=== PATIENT | male | born 1950 | race Hispanic/Latino ===

== ENCOUNTER → 2024-02-23 | Outpatient (CLI) | payer OTHER ==
[~2024-02-23] MED LIST: AMLO-343 PO; ASPI-556 PO; LABE200T7 PO
--- NOTE | 2024-02-23 14:40 | HMCIMG ---
US VENOUS DOPPLER BILATERAL HISTORY: Leg pain COMPARISON: None TECHNIQUE: Bilateral lower extremity venous Doppler ultrasound study was performed. FINDINGS: The common femoral, femoral, popliteal, and posterior tibial veins are visualized. Normal flow with augmentation and compressibilities are demonstrated. The greater saphenous veins are also seen and grossly patent. IMPRESSION: 1. No evidence of deep venous thrombosis is seen.
--- NOTE | 2024-02-23 14:41 | HMCIMG ---
US ARTERIAL BILAT LOW EXT DUPL HISTORY: Leg pain COMPARISON: None TECHNIQUE: Bilateral lower extremity arterial Doppler ultrasound study was performed. FINDINGS: Normal triphasic and biphasic arterial waveforms are noted in the common femoral, deep femoral, superficial femoral, popliteal, posterior tibial and dorsalis pedal arteries. On the right, the peak systolic velocity of the common femoral artery is 160 cm/s, the proximal femoral artery is 95 cm/s, the mid femoral artery is 107 cm/s, the distal femoral artery is 74 cm/s, the proximal popliteal artery is 82 cm/s, the distal popliteal artery is 87 cm/s, the anterior tibial artery is 82 cm/s, the posterior tibial artery artery is 78 cm/s,and the dorsalis pedal artery is 53 cm/s. On the left, the peak systolic velocity of the common femoral artery is 119 cm/s, the proximal femoral artery is 122 cm/s, the mid femoral artery is 120 cm/s, the distal femoral artery is 97 cm/s, the proximal popliteal artery is 79 cm/s, the distal popliteal artery is 85 cm/s, the anterior tibial artery is 72 cm/s, the posterior tibial artery artery is 70 cm/s,and the dorsalis pedal artery is 63 cm/s. IMPRESSION: 1. Atherosclerotic disease. 2. Otherwise normal triphasic and biphasic arterial waveforms noted of the lower extremity artery system.
== END | disposition home or self-care (01) ==
LOC: RAH 13:02
PROVIDERS: ATTEND Nurse Practitioner Family
DX: I70.203 Unspecified atherosclerosis of native arteries of extremities, bilateral legs (principal); M79.604 Pain in right leg; M79.605 Pain in left leg
CPT/HCPCS: 93925; 93970